=== PATIENT | female | born 1975 | race Native Hawaiian/Other Pacific Islander ===

== ENCOUNTER 2016-06-25 11:59 | Day surgery (SDC) | payer OTHER ==
[2016-06-10 12:34] VITALS: BMI 27.8
[2016-06-25] MEDS ORDERED: ceFAZolin IV 1 gm in Dextrose 0 GM/0 ML BAG IVPB ONE (14:53)
[2016-06-25] MEDS ORDERED: Lidocaine 1% Inj (20ml) ONE (14:53)
[2016-06-25] MEDS ORDERED: Propofol 10 mg/ml Inj (20 ML) ONE (15:02)
[2016-06-25] MEDS ORDERED: Lactated Ringer's 1,000 ML IV ONE (15:35)
[2016-06-25] MEDS ORDERED: HYDROmorphone 0.5 mg/0.5 ml ISec IVP PRN (15:47)
--- NOTE | 2016-06-25 15:55 | PCM.SURG1 ---
Surgeon's Initial Post Op Note - Surgeon's Notes Surgeon: Toby Final [employer] Supervisor: Yunier PGY2 Type of Anesthesia: IV Sedation, Local Pre-Operative Diagnosis: Buttock mass Operative Findings: Pedunculated soft tissue mass L buttock Post-Operative Diagnosis: same Operation Performed: excision of buttock mass Specimen/Specimens Removed: buttock mass Estimated Blood Loss: EBL {In ML}: 5 Blood Products Given: N/A Drains Used: No Drains Post-Op Condition: Good Date of Surgery/Procedure: 06/25/16 Time of Surgery/Procedure: 15:55
[2016-06-25] MEDS ORDERED: Oxycodone/Acetaminophen 5/325 mg Tab PO PRN (15:56)
[2016-06-25 16:53] VITALS: PULSE 62; RESP 18
[2016-06-25 17:12] VITALS: BP 111/71; TEMP 97.9; O2SAT 98
--- NOTE | 2016-06-25 21:55 | OP ---
PROCEDURE DATE: 06/25/2016 SURGEON: Dr. Luis. SALES CORRESPONDENT: Dr. Faye. ANESTHESIA: Local with IV sedation, Dr. Ha. PREOPERATIVE DIAGNOSIS: Pedunculated soft tissue mass, left buttock. POSTOPERATIVE DIAGNOSIS: Pedunculated soft tissue mass, left buttock. PROCEDURE: Excision of mass, left buttock. DESCRIPTION OF OPERATION: The patient was placed prone in a slightly jackknife position. She receiv ed light IV sedation, the buttocks area was prepped and draped in the usual sterile manner. On the l eft buttock medially at the junction between the buttocks and the thigh. There was a 4-inch peduncul ated mass with a baseline diameter of approximately 2 inches. The skin surrounding this mass was inf iltrated with 1% lidocaine and an incision was made around the base of the stalk slightly above the l evel of the skin. Upon passing through the full thickness of skin what was grossly a lipomatous mass was dissected free of the surrounding subcutaneous tissue, and with gentle pressure and division of fibrous adhesions, the mass was removed. The operative site was examined for hemostasis and the clos ure was performed with subcuticular sutures of 4-0 Monocryl and Dermabond. In addition, a firm anal tag was excised with cautery in the area adjacent to the mass and this was also sent for pathologic e xamination. The patient tolerated the procedure well and transferred to recovery room in stable cond ition. Estimated blood loss for the procedure was 5 mL. Kimberly Luis MD cc: [id number] TT: 06/25/2016 21:54:37 mi
== END 2016-06-25 17:05 | disposition home or self-care (01) ==
LOC: C.SDS 11:59
PROVIDERS: ATTEND Specialist
DX: D17.39 Benign lipomatous neoplasm of skin and subcutaneous tissue of other sites (principal); R22.2 Localized swelling, mass and lump, trunk
CPT/HCPCS: 11406; 88307; J2704; J3010; J7120